=== PATIENT | female | born 2000 | race Caucasian/White ===

== ENCOUNTER 2024-12-02 17:19 | Emergency (ER) | payer MEDICAID, SELFPAY ==
[2024-12-02 17:21] VITALS: BMI 21.7
[2024-12-02 17:39] VITALS: BP 107/75; PULSE 94; RESP 18; TEMP 37.1; O2SAT 97
--- NOTE | 2024-12-02 18:01 | PD.EDRME ---
Rapid Medical Screening Exam RME Arrival date/time: 12/02/24 17:19 24-year-old female presents to the emergency department today patient reports that she has a history of RA as well as thyroiditis patient reports headache generalized fatigue Chief Complaint: General Adult/Misc Complain Vital signs: Vital Signs Temperature 98.8 F 12/02/24 17:39 Pulse Rate 94 12/02/24 17:39 Respiratory Rate 18 12/02/24 17:39 Blood Pressure 107/75 12/02/24 17:39 Pulse Oximetry (%) 97 12/02/24 17:39 Oxygen Delivery Method Room Air 12/02/24 17:39
--- NOTE | 2024-12-02 18:02 | XR_ITS ---
Examination: CT brain head without contrast. 2-D sagittal coronal reconstructions Date and time of exam:December 02, 2024 at 1816 hrs. Indications: Onset headaches beginning 3 weeks ago CTDI: vol (mGy):48.8 DLP: (mGycm):969. Technique: Multiple CT axial sections of the brain have been obtained, 5 mm slice thickness. Contrast has not been administered. 2-D sagittal, coronal reconstructions have been obtained Low dose protocols were performed. One or more of the following dose reduction techniques were used; automated exposure control, adjustment of the mA and/or KV according to patient size, use of iterative reconstruction technique. Findings: No significant ventricular enlargement. Intra-axial or extra-axial hemorrhage density is not seen. No mass effect or midline shift Basal cisterns are not remarkable. Fourth ventricle is midline. Cranial vault intact. Impression: Negative for acute hemorrhage, mass effect or midline shift Advise clinical correlation follow-up accordingly
[2024-12-02 18:24] LABS: Collection Type, Urine Clean Catch
[2024-12-02 18:38] LABS: Bilirubin,Urine Negative (Negative); Blood,Urine 1+ (Negative); Clarity,Urine Clear (Clear/Hazy); Color,Urine Colorless (Lt Yel-Yel); Culture Indicated,Urine Not Indicated; Glucose, Urine Negative (Negative); Ketones,Urine Negative (Negative); Leukocyte Esterase,Urine Negative (Negative); Nitrite,Urine Negative (Negative); PH,Urine 6.5 (5.0-7.0); Protein,Urine Negative (Neg - Trace); RBC,Urine 2 /hpf (0-3); Specific Gravity,Urine 1.012 (1.001-1.035); Squamous Epithelial Cell,Urine 1 /hpf (0-5); Urobilinogen,Urine Negative mg/dL (0.0-1.0); WBC,Urine < 1 /hpf (0-5)
[2024-12-02 18:39] LABS: HCG Qualitative,Urine Negative
[2024-12-02] MEDS: HYDROcodone/APAP 5/325 TABLET 1 TAB PO (18:39)
[2024-12-02] MEDS: METOCLOPRAMIDE 5 MG TABLET 10 MG PO (18:39)
[2024-12-02] MEDS: DiphenhydrAMINE 25 MG CAPSULE PO (18:39)
[2024-12-02 19:01] LABS: Basophils % (Auto) 1 % (0-2.5); Eosinophils # (Auto) 0.1 Thou/mm3 (0.0-0.5); Eosinophils % (Auto) 2 % (0-10); Hematocrit 37.1 % (36.0-46.0); Hemoglobin 12.8 g/dL (12.0-16.0); Immature Granulocytes % (Auto) 0 % (0-0); Immature Granulocytes Auto 0.01 Thou/mm3 (0.00-0.00); Lymphocytes # (Auto) 1.9 Thou/mm3 (1.0-4.8); Lymphocytes % (Auto) 34 % (10-50); Mean Corpuscular HGB Conc 34.5 g/dl (31.0-37.0); Mean Corpuscular Hemoglobin 29.1 pg (25.0-35.0); Mean Corpuscular Volume 84 fL (80-100); Monocytes # (Auto) 0.3 Thou/mm3 (0.0-0.8); Monocytes % (Auto) 6 % (0-12); Neutrophils # (Auto) 3.2 Thou/mm3 (1.8-7.7); Neutrophils % (Auto) 58 % (37-80); Nucleated Red Blood Cell % 0 /100 WBC (0); Platelet Count 229 Thou/mm3 (140-440); RDW Standard Deviation 39.5 fL (36.4-46.3); White Blood Count 5.5 Thou/mm3 (3.6-11.0)
[2024-12-02 19:34] LABS: Albumin/Globulin Ratio 1.9 (1.2-2.2); Alkaline Phosphatase 82 U/L (46-116); Anion Gap 8 (7-16); Aspartate Amino Transferase 14 U/L (0-34); BUN/Creatinine Ratio 15 Ratio (12-20); Bilirubin,Total 0.3 mg/dL (0.3-1.2); Blood Urea Nitrogen 9 mg/dL (9-23); Calcium 9.5 mg/dL (8.3-10.6); Calcium (Corrected) 9.5 mg/dL (8.5-10.1); Carbon Dioxide 23.8 mMol/L (20.0-31.0); Chloride 107 mMol/L (98-107); Creatinine (Component) 0.6 mg/dL (0.6-1.3); Estimated Creatinine Clearance 135.3 mL/min (>60); Free T4 (Free Thyroxine) 1.13 ng/dL (0.89-1.76); Globulin 2.7 gm/dL (2.3-3.5); Glucose 95 mg/dL (74-106); Lipase 53 U/L (12-53); Osmolality,Calculated 276 (275-295); Potassium 3.8 mMol/L (3.4-5.1); Sodium 139 mMol/L (136-145); Thyroid Stimulating Hormone 2.96 uIU/mL (0.55-4.78); Total Protein 7.7 gm/dL (5.7-8.2); eGFR > 60 See Note
[2024-12-02 19:39] LABS: Alanine Aminotransferase 10 U/L (10-49)
--- NOTE | 2024-12-02 21:12 | PD.EDADULT ---
ED General RME/HPI General Chief complaint: General Adult/Misc Complain Stated complaint: GENERAL PAIN x 3 WEEKS, RECENT ARTHRITIS DIAGNOSIS Time Seen by Provider: 12/02/24 20:45 Arrival date/time: 12/02/24 17:19 24 year old female present to emergency room with c/o of generalize pain for 3 weeks. pt report possible diagnosed with arthritis. LOCATION: generalized SEVERITY: Symptoms are described as being severe with limitations on activities of daily living CONTEXT: The patient is unable to identify any inciting events. DURATION/TIMING: The symptoms started approximately 3 weeks ASSOCIATED SYMPTOMS: The patient is unable to identify any other associated symptoms. MODIFYING FACTORS: The patient is unable to identify any alleviating or aggravating symptoms. PERTINENT ROS: no fevers, no cough, no pleuritic pain, no ripping or tearing sensations, denies any lower extremity edema and no unilateral swelling, no chest pain/shortness of breath no nausea,vomiting, diarrhea, no dizziness no rash no loc/syncope episode no abd/back pain no dsyuria,urgency,frequency REVIEW OF SYSTEMS: See History of Present Illness - with the exception of those mentioned in the history of present illness, all other systems reviewed and reported as negative GENERAL: In general the patient is awake, interactive, in an emergency department gurney. HEAD/EYES/EARS/NOSE/THROAT: normo-cephalic, atraumatic, mucus membranes are moist, anicteric, palpebral conjunctiva is pink, trachea is midline. CARDIOVASCULAR: regular rate and regular rhythm, no murmurs, heart sounds are not distant, strong pulses in all four extremities that are equal and symmetric bilateral upper and lower extremities, normal capillary refill. CHEST/PULMONARY: normal chest rise and fall, good air movement, clear to auscultation bilaterally, normal inspiratory to expiratory ratios without evidence of respiratory distress. NECK: No midline/Paraspinal tenderness, no step off ROM/Strenght intact No Kernig and bruzinski sign. No trauma ABDOMEN: soft, not tender, no masses appreciated BACK: normal range of motion without pain. NEUROLOGICAL: cranio-facial features are symmetric, moves all four extremities equally without obvious limitations or weakness. EXTREMITY: no tenderness to palpation over the long bones or large joints of the bilateral upper and lower extremities, no joint swelling, no joint erythema, no signs of trauma, no unilateral leg swelling and no peripheral edema. SKIN: warm, dry, well-perfused, no jaundice, no rash, no telangiectasias or petechia. PSYCH: calm, cooperative, no evidence of psychosis or agitation RME / HPI RME / HPI narrative: 12/02/24 17:19 24-year-old female presents to the emergency department today patient reports that she has a history of RA as well as thyroiditis patient reports headache generalized fatigue Related Data Home Medications ?Medication ?Instructions ?Recorded ?Confirmed vit no.95-ferrous 1 tab PO QDAY 06/30/23 08/25/23 fumarate 28 mg-folic acid 800 mcg tablet () Previous Rx's ?Medication ?Instructions ?Recorded prednisone 5 mg tablet 5 mg PO QDAY PRN joint pain #30 12/02/24 tabs Allergies Allergy/AdvReac Type Severity Reaction Status Date / Time sulfamethoxazole (From Allergy Severe Rash Verified 12/02/24 17:20 Bactrim) trimethoprim (From Bactrim) Allergy Severe Rash Verified 12/02/24 17:20 Course Course Course Narrative: Given history, exam and workup I have low suspicion for fracture, dislocation, significant ligamentous injury, septic arthritis, gout flare, new autoimmune arthropathy, or gonococcal arthropathy.? ddx:?sj?gren's syndrome vs RA vs autoimmune?vs psoriatic arthritis vs lyme dz Interventions: IV cipriano medrol 125mg, Toradol 30mg IV,? Mgmt: cbc, cmp, uric acid,lyme dz, tsh, t4, ct head,esr, crp Disposition: Discharge home with strict return precautions and instructions for prompt primary care follow up in the next week. Quality Measures none Orders Category Date Time Status CT head/brain wo con Stat Exams 12/02/24 18:02 Completed CBC Stat Lab 12/02/24 18:35 Completed CRP [C-Reactive Protein] Stat Lab 12/02/24 18:35 Completed Comprehensive Metabolic Panel Stat Lab 12/02/24 18:35 Completed ESR [Sed Rate (ESR)] Stat Lab 12/02/24 18:35 Completed Free T4 (Free Thyroxine) Stat Lab 12/02/24 18:35 Completed HCG Qualitative,Urine Stat Lab 12/02/24 18:13 Completed Lipase Stat Lab 12/02/24 18:35 Completed Lyme Ab w Reflex IgG,IgM Blot* Stat Lab 12/02/24 21:33 Received Coffee Screen Stat Lab 12/02/24 21:33 Received Strep A Rapid Stat Lab 12/02/24 21:19 Ordered TSH [Thyroid Stimulating Hormone] Stat Lab 12/02/24 18:35 Completed UA, C/S IF [Urinalysis, C/S if Indicated] Stat Lab 12/02/24 18:13 Completed Uric Acid Stat Lab 12/02/24 18:35 Completed DiphenhydrAMINE [Benadryl] Med 12/02/24 18:00 Discontinued 25 mg PO X1 ONE HYDROcodone*/APAP 5/325 [[place] 5/325] Med 12/02/24 18:00 Discontinued 1 tab PO X1 ONE Ketorolac Inj [Toradol Inj] Med 12/02/24 20:55 Discontinued 30 mg IVP X1 ONE MethylPREDNISolone.* [SoluMEDROL Inj] Med 12/02/24 21:04 Discontinued 125 mg IVP X1 ONE Metoclopramide [Reglan] Med 12/02/24 18:00 Discontinued 10 mg PO X1 ONE Sodium Chloride 0.9% 1000 ml [Ns] 1,000 ml Med 12/02/24 20:55 Discontinued IV 999 mls/hr Reevaluation(s) Reevaluation #1: pt is feeling better and comfortable to go home. rx: prednisone 5mg as need for Flare up. advised to get follow up with specialist. Return to ED if symptoms worsen. Vital Signs Vital signs: Vital Signs Temperature 98.8 F 12/02/24 17:39 Pulse Rate 94 12/02/24 17:39 Respiratory Rate 18 12/02/24 17:39 Blood Pressure 107/75 12/02/24 17:39 Pulse Oximetry (%) 97 12/02/24 17:39 Oxygen Delivery Method Room Air 12/02/24 17:39 [facility] Patient data External records reviewed:: [facility] previous records Clinical information provided by:: patient Social determinants that could affect healthcare access:: none Patient has the following chronic illnesses:: none How is presenting disease/condition affected by chronic disease/condition?: no chronic disease Evaluation data The following diagnostics were reviewed and interpreted by me:: lab results and radiology exam(s) Lab and/or radiology exams considered but not ordered:: none Interpretation Summary: CT: no acute findings cbc/cmp/esr/crp/tsh/uric acid wnl lyme dz pending Medications Medications considered but not ordered:: n/a Medication administrations:: Medication Administration History Discontinued Medications Hydrocodone Bitart/Acetaminophen (Hydrocodone/Apap 5/325 Tablet) 1 tab PO X1 ONE Stop: 12/02/24 18:01 Last Admin: 12/02/24 18:39 Dose: 1 tab Documented By: TU Diphenhydramine HCl (Diphenhydramine 25 Mg Capsule) 25 mg PO X1 ONE Stop: 12/02/24 18:01 Last Admin: 12/02/24 18:39 Dose: 25 mg Documented By: TU Sodium Chloride (Ns) 1,000 mls @ 999 mls/hr IV .Q1H1M ONE Stop: 12/02/24 21:55 Last Admin: 12/02/24 21:14 Dose: 999 mls/hr Documented By: TU Ketorolac Tromethamine (Ketorolac Inj 30 Mg/Ml Vial) 30 mg IVP X1 ONE Stop: 12/02/24 20:56 Last Admin: 12/02/24 21:23 Dose: 30 mg Documented By: CVL Methylprednisolone Sodium Succinate (Methylprednisolone Sod Succ 62.5 Mg/Ml 2ml Vial) 125 mg IVP X1 ONE Stop: 12/02/24 21:05 Last Admin: 12/02/24 21:26 Dose: 125 mg Documented By: CVL Metoclopramide HCl (Metoclopramide 5 Mg Tablet) 10 mg PO X1 ONE Stop: 12/02/24 18:01 Last Admin: 12/02/24 18:39 Dose: 10 mg Documented By: TU as state above Consultations Consultation(s) initiated? (list below): No Diagnosis Differential Diagnosis ED Complaint MDM: as stated in course Most likely diagnosis given after review of the tests above:: myalgia Admission Indicated Admission indicated?: not indicated Explain why admission is indicated or not indicated:: not indicated Admission Request Was there a request for admission?: No Disposition Plan Disposition Plan: Discharge Discharge Attestation Discharge Attestation: The patient and all family members were given an opportunity to ask questions and understood the discharge instructions. Discharge instructions specifically effects, indications for sooner follow up or return to the emergency department, and the expected course of current diagnosis. Patient condition: Stable Medical Decision Making Differential Diagnosis Differential Diagnosis: as stated in course Lab Data 12/02/24 18:35 12/02/24 18:35 Labs: Lab Results 12/02/24 12/02/24 Range/Units 18:13 18:35 WBC 5.5 (3.6-11.0) Thou/mm3 RBC 4.40 (4.00-5.20) Miln/mm3 Hgb 12.8 (12.0-16.0) g/dL Hct 37.1 (36.0-46.0) % MCV 84 (80-100) fL MCH 29.1 (25.0-35.0) pg MCHC 34.5 (31.0-37.0) g/dl RDW Std Deviation 39.5 (36.4-46.3) fL Plt Count 229 (140-440) Thou/mm3 Neut % (Auto) 58 (37-80) % Lymph % (Auto) 34 (10-50) % Coffee % (Auto) 6 (0-12) % Eos % (Auto) 2 (0-10) % Baso % (Auto) 1 (0-2.5) % Neut # (Auto) 3.2 (1.8-7.7) Thou/mm3 Lymph # (Auto) 1.9 (1.0-4.8) Thou/mm3 Coffee # (Auto) 0.3 (0.0-0.8) Thou/mm3 Eos # (Auto) 0.1 (0.0-0.5) Thou/mm3 Baso # (Auto) 0.0 (0.0-0.2) Thou/mm3 Immature Gran # (Auto) 0.01 H (0.00-0.00) Thou/mm3 Absolute Nucleated RBC 0.00 (0.00-0.00) Thou/mm3 Immature Gran % 0 (0-0) % Nucleated RBC % 0 (0) /100 WBC ESR 14 (0-20) mm/hr Sodium 139 (136-145) mMol/L Potassium 3.8 (3.4-5.1) mMol/L Chloride 107 (98-107) mMol/L Carbon Dioxide 23.8 (20.0-31.0) mMol/L Anion Gap 8 (7-16) BUN 9 (9-23) mg/dL Creatinine 0.6 (0.6-1.3) mg/dL Estim Creat Clear Calc 135.3 (>60) mL/min eGFR > 60 (60 - ) See Note BUN/Creatinine Ratio 15 (12-20) Ratio Glucose 95 (74-106) mg/dL Calculated Osmolality 276 (275-295) Uric Acid 4.2 (3.1-7.8) mg/dL Calcium 9.5 (8.3-10.6) mg/dL Corrected Calcium 9.5 (8.5-10.1) mg/dL Total Bilirubin 0.3 (0.3-1.2) mg/dL AST 14 (0-34) U/L ALT 10 (10-49) U/L Alkaline Phosphatase 82 (46-116) U/L C-Reactive Prot, Quant < 0.4 (0.0-0.9) mg/dL Total Protein 7.7 (5.7-8.2) gm/dL Albumin 5.0 (3.5-5.0) gm/dL Globulin 2.7 (2.3-3.5) gm/dL Albumin/Globulin Ratio 1.9 (1.2-2.2) Lipase 53 (12-53) U/L TSH 2.96 (0.55-4.78) uIU/mL Free T4 1.13 (0.89-1.76) ng/dL Ur Collection Type Clean Catch Urine Color Colorless A (Lt Yel-Yel) Urine Clarity Clear (Clear/Hazy) Urine pH 6.5 (5.0-7.0) Ur Specific Walker 1.012 (1.001-1.035) Urine Protein Negative (Neg - Trace) Urine Glucose (UA) Negative (Negative) Urine Ketones Negative (Negative) Urine Blood 1+ A (Negative) Urine Nitrite Negative (Negative) Urine Bilirubin Negative (Negative) Urine Urobilinogen (Auto) Negative (0.0-1.0) mg/dL Ur Leukocyte Esterase Negative (Negative) Urine RBC 2 (0-3) /hpf Urine WBC < 1 (0-5) /hpf Ur Squamous Epith Cells 1 (0-5) /hpf Urine Bacteria None (None) Ur Culture Indicated? Not Indicated Urine HCG, Qual Negative Discharge Plan Plan Patient Disposition: HOME (Self Care) Prescriptions/Referrals Prescriptions/Med Rec: New prednisone 5 mg tablet 5 mg PO QDAY PRN (Reason: joint pain) Qty: 30 0RF No Action PNV cmb#95-ferrous fumarate-FA [] 28 mg iron- 800 mcg tablet 1 tab PO QDAY Patient Comments: TAKE 1 TABLET BY MOUTH EVERY DAY Referrals: Domingo Yi PA-C [Primary Care Provider] - In 1 week Problem List Clinical Impression: Myalgia Patient/Caregiver Discharge Instructions Education Materials: ED Myalgias Print Language: Italian Stand Alone Forms: Marily Award Info., Patient Portal Info Letter
[2024-12-02] MEDS: SODIUM CHLORIDE 0.9% 1000 ML 1,000 ML 999 ML IV (21:14)
[2024-12-02] MEDS: KETOROLAC INJ 30 MG/ML VIAL IVP (21:23)
[2024-12-02] MEDS: MethylPREDNISolone SOD SUCC 62.5 MG/ML 2ML VIAL 125 MG IVP (21:26)
[2024-12-02 21:30] LABS: Sed Rate (ESR) 14 mm/hr (0-20)
[2024-12-02 21:35] LABS: C-Reactive Protein < 0.4 mg/dL (0.0-0.9); Uric Acid 4.2 mg/dL (3.1-7.8)
[2024-12-02 22:24] LABS: Strep A Rapid Negative (Negative)
[2024-12-03 01:02] LABS: Mono Screen Negative (Negative)
[2024-12-10 06:53] LABS: Lyme Antibody Screen <0.90 INDEX
== END 2024-12-02 22:15 | disposition home or self-care (01) ==
PROVIDERS: Nurse Practitioner Primary Care; Physician Assistant; Emergency Provider Emergency Medicine; PCP Physician Assistant
DX: M79.10 Myalgia, unspecified site (principal); R51.9 Headache, unspecified
CPT/HCPCS: 36415; 70450; 80053; 81001; 81025; 83690; 84439; 84443; 84550; 85025; 85652; 86140; 86308; 86618; 87651; 96374; 99284; J1885; J2919; J7030; A9270

== ENCOUNTER → 2025-02-14 | Outpatient (CLI) | payer BC, SELFPAY ==
[2025-02-15 08:54] LABS: BVAG Candida Negative (Negative); Bacterial Vaginosis Markers Negative (Negative); Candida glabrata Negative (Negative); Candida krusei PCR Negative (Negative); Trichomonas Negative (Negative)
== END | disposition home or self-care (01) ==
LOC: SLDO 15:31
PROVIDERS: Referring Provider Specialist; Visit Provider Specialist
DX: A59.01 Trichomonal vulvovaginitis (principal); B37.89 Other sites of candidiasis; L29.89 Other pruritus; N76.0 Acute vaginitis
CPT/HCPCS: 81514; 87086

== ENCOUNTER → 2025-07-08 | Outpatient (CLI) | payer BC, SELFPAY ==
[2025-07-08 12:46] LABS: Collection Type, Urine Clean Catch
[2025-07-08 13:10] LABS: Basophils # (Auto) 0.0 Thou/mm3 (0.0-0.2); Basophils % (Auto) 1 % (0-2.5); Eosinophils # (Auto) 0.0 Thou/mm3 (0.0-0.5); Eosinophils % (Auto) 0 % (0-10); Hematocrit 41.0 % (36.0-46.0); Hemoglobin 14.6 g/dL (12.0-16.0); Immature Granulocytes Auto 0.01 Thou/mm3 (0.00-0.00); Lymphocytes # (Auto) 2.0 Thou/mm3 (1.0-4.8); Lymphocytes % (Auto) 37 % (10-50); Mean Corpuscular HGB Conc 35.6 g/dl (31.0-37.0); Mean Corpuscular Hemoglobin 31.1 pg (25.0-35.0); Mean Corpuscular Volume 87 fL (80-100); Monocytes # (Auto) 0.4 Thou/mm3 (0.0-0.8); Monocytes % (Auto) 8 % (0-12); Neutrophils # (Auto) 2.8 Thou/mm3 (1.8-7.7); Neutrophils % (Auto) 53 % (37-80); Nucleated Red Blood Cell # 0.00 Thou/mm3 (0.00-0.00); Nucleated Red Blood Cell % 0 /100 WBC (0); Platelet Count 251 Thou/mm3 (140-440); RDW Standard Deviation 41.8 fL (36.4-46.3); Red Blood Count 4.69 Miln/mm3 (4.00-5.20); White Blood Count 5.2 Thou/mm3 (3.6-11.0)
[2025-07-08 13:12] LABS: Bilirubin,Urine Negative (Negative); Blood,Urine 1+ (Negative); Clarity,Urine Clear (Clear/Hazy); Color,Urine Yellow (Lt Yel-Yel); Glucose, Urine Negative (Negative); Ketones,Urine Negative (Negative); Leukocyte Esterase,Urine Negative (Negative); Nitrite,Urine Negative (Negative); PH,Urine 6.5 (5.0-7.0); Protein,Urine Negative (Neg - Trace); RBC,Urine 8 /hpf (0-3); Specific Gravity,Urine 1.027 (1.001-1.035); Squamous Epithelial Cell,Urine 2 /hpf (0-5); Urobilinogen,Urine Negative mg/dL (0.0-1.0); WBC,Urine 1 /hpf (0-5)
[2025-07-08 13:18] LABS: Glucose Estimated Average 103 mg/dL (80-131); Hemoglobin A1C 5.2 % Hgb (4.8-6.0)
[2025-07-08 13:39] LABS: Alanine Aminotransferase 10 U/L (10-49); Albumin, Serum 5.2 gm/dL (3.5-5.0); Albumin/Globulin Ratio 2.0 (1.2-2.2); Alkaline Phosphatase 68 U/L (46-116); Anion Gap 11 (7-16); Aspartate Amino Transferase 16 U/L (0-34); BUN/Creatinine Ratio 11 Ratio (12-20); Bilirubin,Total 0.6 mg/dL (0.3-1.2); Blood Urea Nitrogen 9 mg/dL (9-23); Calcium 10.1 mg/dL (8.3-10.6); Calcium (Corrected) 10.1 mg/dL (8.5-10.1); Carbon Dioxide 24.2 mMol/L (20.0-31.0); Chloride 108 mMol/L (98-107); Creatinine (Component) 0.8 mg/dL (0.6-1.3); Free T4 (Free Thyroxine) 1.28 ng/dL (0.89-1.76); Globulin 2.6 gm/dL (2.3-3.5); Glucose 89 mg/dL (74-106); Osmolality,Calculated 282 (275-295); Potassium 4.2 mMol/L (3.4-5.1); Sodium 143 mMol/L (136-145); Thyroid Stimulating Hormone 3.17 uIU/mL (0.55-4.78); Total Protein 7.8 gm/dL (5.7-8.2); eGFR > 60 See Note
[2025-07-08 14:20] LABS: RA Screen Positive (Negative)
[2025-07-08 14:21] LABS: Rheumatoid Factor Titer 1:128
[2025-07-14 09:22] LABS: ANA Screen, IFA POSITIVE (NEGATIVE); ANA Titer 1:1280 titer
== END | disposition home or self-care (01) ==
LOC: COPL 11:54
PROVIDERS: PCP Family Medicine; Referring Provider Family Medicine; Visit Provider Family Medicine
DX: Z00.00 Encounter for general adult medical examination without abnormal findings (principal); E06.9 Thyroiditis, unspecified; Z86.32 Personal history of gestational diabetes; M06.9 Rheumatoid arthritis, unspecified
CPT/HCPCS: 36415; 80053; 81001; 83036; 84439; 84443; 85025; 86038; 86039; 86430; 86431